=== PATIENT | female | born 1945 | race Caucasian/White ===

== ENCOUNTER → 2017-09-26 | Outpatient (CLI) | payer MEDICARE, OTHER | END | disposition home or self-care (01) | LOC: PCVCCLINIC 13:31 | DX: E78.00 Pure hypercholesterolemia, unspecified (principal); R93.1 Abnormal findings on diagnostic imaging of heart and coronary circulation; I77.9 Disorder of arteries and arterioles, unspecified; Z82.49 Family history of ischemic heart disease and other diseases of the circulatory system; Z87.891 Personal history of nicotine dependence; Z79.82 Long term (current) use of aspirin; Z79.899 Other long term (current) drug therapy | CPT/HCPCS: 80061; 93005; G0463 ==

== ENCOUNTER → 2017-09-29 | Outpatient (CLI) | payer MEDICARE, OTHER | END | disposition home or self-care (01) | LOC: PCVCIMAG 12:02 | DX: E83.52 Hypercalcemia (principal) | CPT/HCPCS: 93325; 93351 ==

== ENCOUNTER → 2018-09-29 | Outpatient (CLI) | payer MEDICARE, OTHER | END | disposition home or self-care (01) | LOC: PCVCCLINIC 11:00 | PROVIDERS: ATTEND Internal Medicine Cardiovascular Disease | DX: R93.1 Abnormal findings on diagnostic imaging of heart and coronary circulation (principal); R06.02 Shortness of breath; E78.00 Pure hypercholesterolemia, unspecified; I77.9 Disorder of arteries and arterioles, unspecified; Z82.49 Family history of ischemic heart disease and other diseases of the circulatory system | CPT/HCPCS: 93005; G0463 ==

== ENCOUNTER → 2018-12-03 | Outpatient (CLI) | payer MEDICARE, OTHER ==
--- NOTE | 2018-12-03 18:33 | PCVCIMAG ---
APPROVED REPORT Study performed: 12/03/2018 11:46:02 Exam: Stress Echocardiogram Indication: Hyperlipidemia, Hypertension, Elevated Calcium score Patient Location: Echo lab Stress Nurse: Malia Valero RN Status: routine Ht: 5 ft 4 in HR: 82 bpm BP: 130/74 mmHg Rhythm: NSR Procedure The patient underwent an Exercise Stress Test using the Ricco Protocol. Blood pressure, heart rate, and EKG were monitored. An Echocardiogram was performed by agricultural engineering technician in four stages in quad fashion. At peak stress, four selected images were obtained and placed side by side with resting images for comparison. Stress Test Details Stress Test: Exercise stress testing was performed using a Ricco protocol. HR Resting HR: 82 bpmMax Heart Rate (APMHR): 146 bpm Max HR Achieved: 151 bpmTarget HR (85% APMHR): 124 bpm % of APMHR: 103 Recovery HR: 81 bpm HR response to stress: Normal HR response to stress BP Resting BP: 130/74 mmHg Max BP: 148/74 mmHg Recovery BP: 142/68 mmHg BP response to stress: Normal blood pressure response to stress. ECG Resting ECG: Sinus Rhythm Stress ECG: Sinus Rhythm, SVT ST Change: Non-specific ST changes Arrhythmia: SVT Recovery ECG: Sinus Rhythm Recovery Arrhythmia: SVT Clinical Reason for Termination: Maximal effort Exercise duration: 6 min 50 sec Highest Stage Achieved: Stage 2: 2.5 mph at 12% grade. Exercise capacity: 9.50 METs Overall Exercise Capacity for Age: Normal Conclusion Clinical Response: Non-ischemic Exercise Capacity: Average Stress ECG Response: Non-ischemic Stress Echo Images: Non-ischemic Other Information Study Quality: Excellent
== END | disposition home or self-care (01) ==
LOC: PCVCIMAG 11:20
PROVIDERS: ATTEND Internal Medicine Cardiovascular Disease
DX: I10 Essential (primary) hypertension (principal); R93.1 Abnormal findings on diagnostic imaging of heart and coronary circulation; E78.5 Hyperlipidemia, unspecified; E78.00 Pure hypercholesterolemia, unspecified; R07.9 Chest pain, unspecified; R06.02 Shortness of breath; Z82.49 Family history of ischemic heart disease and other diseases of the circulatory system; Z87.891 Personal history of nicotine dependence
CPT/HCPCS: 36415; 80061; 93325; 93351